=== PATIENT | male | born 1995 | race Caucasian/White ===

== ENCOUNTER 2018-08-14 12:48 | Emergency (ER) | payer MEDICAID, SELFPAY ==
[2018-08-14 12:49] VITALS: BP 148/81; PULSE 110; RESP 20; TEMP 36.6; O2SAT 85; BMI 18.6
[2018-08-14 12:58] VITALS: BP 148/81; PULSE 109; RESP 22; TEMP 36.4; O2SAT 92
[2018-08-14 13:02] VITALS: O2SAT 91
--- NOTE | 2018-08-14 13:02 | EKG12_ITS ---
Test Reason : SOB Blood Pressure : / mmHG Vent. Rate : 104 BPM Atrial Rate : 104 BPM P-R Int : 144 ms QRS Dur : 106 ms QT Int : 356 ms P-R-T Axes : 081 158 068 degrees QTc Int : 468 ms Sinus tachycardia Biatrial enlargement Right axis deviation Incomplete right bundle branch block , possible right ventricular hypertrophy Cannot rule out Anterior infarct , age undetermined Abnormal ECG Confirmed by CHON MICHEL, JHONY ([id number]), technical editor MARBELLA RAMOS ([id number] on 08/17/2018 11:55:01 AM Referred By: MIN Confirmed By:JHNOY GIVENS MD
--- NOTE | 2018-08-14 13:02 | RAD_ITS ---
STUDY: X-RAY CHEST REASON FOR EXAM: Male, 23 years old. Diaphoresis, dyspnea, history of heart murmur TECHNIQUE: AP COMPARISON: None. FINDINGS: The lungs are clear and expanded. There is no demonstrated pleural abnormality. Cardiac silhouette enlargement with prominent/rounded superior left mediastinal border. Normal mediastinum and fabián. Normal visualized pulmonary arteries. Normal visualized aortic arch and descending thoracic aorta. Normal visualized thoracic spine. Normal visualized ribs, clavicles, and shoulders. There is no demonstrated abnormality of the visualized soft tissue structures of the upper abdomen. RAD/Chest 1 View (Portable) IMPRESSION: 1. No airspace disease or pleural effusion. 2. Cardiomegaly with enlarged superior left heart border suggesting left atrial/appendage enlargement versus pulmonary artery enlargement. Findings are suggestive of congenital heart disease. Correlation with prior studies/echocardiography suggested. Electronically Signed: Sanjay Barros MD at 13:46 EDT , Service support ,
[2018-08-14] MEDS: 0.9% Normal Saline 1,000 ML 1000 ML IV (13:32)
[2018-08-14] MEDS: 0.9% Normal Saline 1,000 ML 15 ML IV (13:32)
--- NOTE | 2018-08-14 13:32 | ED.RN ---
LAB CALLED REGARDING PT BLOOD DRAW AND ELEVATED HGB. TO REDRAW CO-AG DUE TO LAB RESULTS
[2018-08-14 13:33] LABS: Absolute Lymphocyte Count 1.84 X10^3/ul (0.83-4.51); Absolute Neutrophil Count 5.3 X10^3/uL (2.0-7.7); Basophil# 0.01 X10^3/uL; Basophil% 0.1 % (0-1); Eosinophil# 0.01 X10^3/uL; Eosinophils% 0.1 % (0-5); Hematocrit 70.4 % (40-54); Lymphocyte # 1.84 X10^3/ul (4.0); Lymphocyte % 24.1 % (19-41); Mean Corp Hgb Conc 35.9 g/gl (32-36); Mean Corpuscular Hgb 32.5 pg (27.0-32.0); Mean Corpuscular Volume 90.5 fL (80-94); Monocyte# 0.46 X10^3/uL; Neutrophil # 5.32 X10^3/uL (2.7-7.7); Neutrophil % 69.6 % (47-70); Platelet Count 27 K/mm3 (150-450); RBC Distribution Width CV 14.3 % (11.6-14.6); RBC Distribution Width SD 47.2 fl (35.1-43.9); Red Blood Count 7.78 M/mm3 (4.6-6.2); White Blood Count 7.7 K/mm3 (4.4-11.0)
[2018-08-14 13:36] LABS: Differential Indicated SCAN CRITERIA MET; POSITIVE COUNT YES; POSITIVE DIFFERENTIAL NO; POSITIVE MORPHOLOGY YES
[2018-08-14 13:54] LABS: Anion Gap 9 (5-15); BUN 22 mg/dL (7-18); BUN/Creat Ratio 15.7 RATIO (10-20); Calcium,Total 9.4 mg/dL (8.5-10.1); Chloride 100 mmol/L (98-107); EST Glomerular Filtration Rate 67 mL/min (>60); Est Glom Filt Rate - Afr Amer 81 mL/min (>60); Glucose 156 mg/dL (74-106); Potassium 4.5 mmol/L (3.5-5.1); Sodium Level 136 mmol/L (136-145)
[2018-08-14 13:56] LABS: Platelet Estimate MKD DEC (ADEQ)
[2018-08-14 13:57] LABS: Hemoglobin 25.3 g/dl (13.0-16.5)
--- NOTE | 2018-08-14 14:01 | NURSING ---
CALL FROM LAB , PLATELETS 27 , HGB 25.[address] BAIRD AWARE
[2018-08-14 14:09] LABS: D-Dimer Quantitative (DVT/PE) 0.31 FEU/ug/m (0.27-0.49)
[2018-08-14 14:16] LABS: BNP,B-Type NATRIURETIC PEPTIDE 56.8 pg/mL (0-100)
--- NOTE | 2018-08-14 15:03 | ED.VISSUMM ---
- ER Visit Summary Date of Service: 08/14/18 Chief Complaint: [Shortness of breath] History of Present Illness: The patient is a 23 M [presents to the emergency room chief complaint shortness of breath for over 1 week. Patient is actually been doing short of breath with activity and exertion for months. Patient states that he saw a flight control tower operator after his primary care physician told him he had a heart murmur recently and had an echocardiogram he thought it was in April. Patient denies any chest pain. He denies any fever. Patient does have a history of asthma. Patient denies recent travel or surgery. Patient is not sure what the ultrasound of his heart showed.] Physical Examination: [HEENT-PERRLA, EOMI. Cranial nerves II through XII grossly intact. TMs clear. Mucous membranes moist. No adenopathy. Cardiovascular-regular and tachycardic with a 4 out of 6 harsh systolic ejection murmur. Lungs-clear to auscultation, chest wall stable without crepitus or subcu emphysema Abdomen-normoactive bowel sounds, soft, nontender, no rebound or rigidity, no peritoneal signs. Extremities-intact ?4, normal range of motion, normal pulses, atraumatic] Test Results: [Patient was hypoxic on arrival with a pulse ox of 87% on room air therefore he was placed on 2 L nasal cannula O2. His EKG showed a sinus tachycardia with a ventricular rate of 104 bpm with biatrial enlargement. CBC with differential 7.7, hemoglobin 20.5, hematocrit 70, platelets 27. Chemistries showed a BUN of 22 and creatinine 1.4. Troponin is less than 0.15. BNP was 57. D-dimer was 0.31. Chest x-ray showed left atrial enlargement versus pulmonary artery enlargement.] Emergency Department Course and Treatment: [Patient was placed on 2 L nasal cannula O2. Case was discussed with [facility] and will have patient transferred to their facility for concern of heart failure and pulmonary hypertension for evaluation of heart and lung transplant per flight control tower operator. 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 It may contain incorrect words, spelling, and punctuation that were not noted in review of the chart prior to signing ED Disposition - Plan for ED Patient: Referrals: Brown Murillo DO [Primary Care Provider] -
[2018-08-14 15:13] VITALS: BP 135/80; PULSE 105; PULSE 108; RESP 18; TEMP 36.6; O2SAT 95
[2018-08-14 16:34] VITALS: BP 128/80; PULSE 102; RESP 16; TEMP 36.6; O2SAT 95
[2018-08-14 16:54] VITALS: BP 135/70; PULSE 105; RESP 18; O2SAT 95
[2018-08-16 12:47] LABS: Pathologist Review Reviewed
== END 2018-08-14 17:45 | disposition short-term general hospital (02) ==
PROVIDERS: Emergency Provider Emergency Medicine; Family Provider Family Medicine; PCP Family Medicine
DX: I27.20 Pulmonary hypertension, unspecified (principal); R09.02 Hypoxemia; D69.6 Thrombocytopenia, unspecified; J45.909 Unspecified asthma, uncomplicated; R01.1 Cardiac murmur, unspecified
CPT/HCPCS: 36415; 71045; 80048; 83880; 84484; 85025; 85379; 93005; 96360; 96361; 99285; A4216

== ENCOUNTER → 2018-10-02 | Outpatient (CLI) | payer MEDICAID, SELFPAY ==
[2018-10-02 10:22] LABS: Absolute Lymphocyte Count 2.21 X10^3/uL (0.83-4.51); Absolute Neutrophil Count 3.5 X10^3/uL (2.0-7.7); Basophil# 0.04 X10^3/uL; Basophil% 0.6 % (0-1); Eosinophil# 0.07 X10^3/uL; Eosinophils% 1.1 % (0-5); Lymphocyte # 2.21 X10^3/ul (4.0); Lymphocyte % 34.6 % (19-41); Mean Corp Hgb Conc 34.8 g/dL (32-36); Mean Corpuscular Hgb 31.1 pg (27.0-32.0); Mean Corpuscular Volume 89.3 fL (80-94); Mean Platelet Vol. 11.4 fl (6.2-12.0); Monocyte# 0.54 X10^3/uL; Monocyte% 8.5 % (0-10); NRBC Flagged by Analyzer 0 % (0-5); Neutrophil # 3.52 X10^3/uL (2.7-7.7); Platelet Count 128 K/mm3 (150-450); RBC Distribution Width CV 13.5 % (11.6-14.6); RBC Distribution Width SD 41.9 fl (35.1-43.9); Red Blood Count 6.76 M/mm3 (4.6-6.2); White Blood Count 6.4 K/mm3 (4.4-11.0)
[2018-10-02 10:23] LABS: Hematocrit 60.4 % (40-54)
[2018-10-02 10:45] LABS: BNP,B-Type NATRIURETIC PEPTIDE 33.2 pg/mL (0-100)
[2018-10-02 10:48] LABS: AST(SGOT) 26 U/L (15-37); Alanine Aminotransfer ALT/SGPT 35 U/L (16-61); Albumin, Serum 3.8 g/dL (3.2-5.0); Alkaline Phosphatase 78 U/L (45-117); Bilirubin, Direct 0.19 mg/dL (0.00-0.30); Globulin 3.2 g/dL (2.2-4.2); Uric Acid 7.3 mg/dL (3.5-7.2)
[2018-10-04 12:25] LABS: Pathologist Review Reviewed
== END | disposition home or self-care (01) ==
PROVIDERS: Family Provider Family Medicine; PCP Family Medicine
DX: Q25.0 Patent ductus arteriosus (principal); I27.83 Eisenmenger's syndrome
CPT/HCPCS: 36415; 80076; 83880; 84550; 85025

== ENCOUNTER → 2019-02-05 09:24 | Outpatient (CLI) | payer MEDICAID, SELFPAY ==
[2019-02-05 09:50] LABS: Absolute Lymphocyte Count 2.54 X10^3/uL (0.83-4.51); Absolute Neutrophil Count 4.1 X10^3/uL (2.0-7.7); Basophil# 0.07 X10^3/uL; Basophil% 0.9 % (0-1); Eosinophil# 0.08 X10^3/uL; Eosinophils% 1.1 % (0-5); Lymphocyte # 2.54 X10^3/ul (4.0); Lymphocyte % 33.9 % (19-41); Mean Corp Hgb Conc 34.5 g/dL (32-36); Mean Corpuscular Hgb 31.4 pg (27.0-32.0); Mean Corpuscular Volume 90.8 fL (80-94); Mean Platelet Vol. 11.6 fl (6.2-12.0); Monocyte# 0.72 X10^3/uL; Monocyte% 9.6 % (0-10); NRBC Flagged by Analyzer 0 % (0-5); Neutrophil # 4.06 X10^3/uL (2.7-7.7); Neutrophil % 54.2 % (47-70); POSITIVE COUNT YES; Platelet Count 75 K/mm3 (150-450); RBC Distribution Width CV 14.7 % (11.6-14.6); RBC Distribution Width SD 42.5 fl (35.1-43.9); Red Blood Count 7.65 M/mm3 (4.6-6.2); White Blood Count 7.5 K/mm3 (4.4-11.0)
[2019-02-05 09:51] LABS: Hematocrit 69.5 % (40-54)
[2019-02-05 10:08] LABS: ALB/GLOB Ratio 1.1 RATIO (0.9-2.4); AST(SGOT) 29 U/L (15-37); Alanine Aminotransfer ALT/SGPT 44 U/L (16-61); Albumin, Serum 3.8 g/dL (3.2-5.0); Alkaline Phosphatase 74 U/L (45-117); Anion Gap 6 (5-15); BUN 19 mg/dL (7-18); BUN/Creat Ratio 19.2 RATIO (10-20); Calcium,Total 8.8 mg/dL (8.5-10.1); Chloride 109 mmol/L (98-107); Creatinine, Serum 0.99 mg/dL (0.70-1.30); EST Glomerular Filtration Rate 100 mL/min (>60); Est Glom Filt Rate - Afr Amer 121 mL/min (>60); Globulin 3.4 g/dL (2.2-4.2); Glucose 73 mg/dL (74-106); Potassium 4.4 mmol/L (3.5-5.1); Protein, Total 7.2 g/dL (6.4-8.2); Sodium Level 140 mmol/L (136-145)
[2019-02-05 10:31] LABS: BNP,B-Type NATRIURETIC PEPTIDE 64.8 pg/mL (0-100)
[2019-02-07 12:05] LABS: Pathologist Review Reviewed
== END ==
PROVIDERS: Family Provider Family Medicine; PCP Family Medicine
DX: I27.83 Eisenmenger's syndrome (principal)
CPT/HCPCS: 36415; 80053; 83880; 85025

== ENCOUNTER → 2019-11-12 08:31 | Outpatient (CLI) | payer MEDICAID, SELFPAY ==
[2019-11-12 10:00] LABS: Absolute Lymphocyte Count 2.18 X10^3/uL (0.83-4.51); Absolute Neutrophil Count 3.6 X10^3/uL (2.0-7.7); Basophil# 0.05 X10^3/uL; Basophil% 0.8 % (0-1); Eosinophil# 0.05 X10^3/uL; Eosinophils% 0.8 % (0-5); Hemoglobin 24.5 g/dL (13.0-16.5); Lymphocyte # 2.18 X10^3/ul (4.0); Lymphocyte % 34.2 % (19-41); Mean Corp Hgb Conc 33.7 g/dL (32-36); Mean Corpuscular Hgb 30.5 pg (27.0-32.0); Mean Corpuscular Volume 90.5 fL (80-94); Mean Platelet Vol. 13.1 fl (6.2-12.0); Monocyte# 0.46 X10^3/uL; Monocyte% 7.2 % (0-10); NRBC Flagged by Analyzer 0 % (0-5); Neutrophil # 3.61 X10^3/uL (2.7-7.7); Neutrophil % 56.7 % (47-70); POSITIVE COUNT YES; Platelet Count 74 K/mm3 (150-450); RBC Distribution Width SD 54.1 fl (35.1-43.9); White Blood Count 6.4 K/mm3 (4.4-11.0)
[2019-11-12 10:13] LABS: Differential Indicated SCAN CRITERIA MET; Hematocrit 72.7 % (40-54); Red Blood Count 7.98 M/mm3 (4.6-6.2)
[2019-11-12 10:31] LABS: Differential Comment SCANNED; Platelet Estimate MKD DEC (ADEQ)
[2019-11-14 14:13] LABS: Pathologist Review Reviewed
== END ==
PROVIDERS: PCP Family Medicine
DX: I27.83 Eisenmenger's syndrome (principal)
CPT/HCPCS: 36415; 85025

== ENCOUNTER 2020-06-19 09:55 | Outpatient (RCR) | payer MEDICAID, SELFPAY ==
[2020-06-19 10:59] LABS: Absolute Lymphocyte Count 2.83 X10^3/uL (0.83-4.51); Absolute Neutrophil Count 4.2 X10^3/uL (2.0-7.7); Basophil# 0.07 X10^3/uL; Basophil% 0.9 % (0-1); Eosinophil# 0.07 X10^3/uL; Eosinophils% 0.9 % (0-5); Hemoglobin 24.8 g/dL (13.0-16.5); Lymphocyte # 2.83 X10^3/ul (0.83-4.51); Lymphocyte % 36.6 % (19-41); Mean Corp Hgb Conc 33.2 g/dL (32-36); Mean Corpuscular Hgb 30.1 pg (27.0-32.0); Mean Corpuscular Volume 90.7 fL (80-94); Mean Platelet Vol. 12.7 fl (6.2-12.0); Monocyte# 0.58 X10^3/uL; Monocyte% 7.5 % (0-10); NRBC Flagged by Analyzer 0 % (0-5); Neutrophil # 4.18 X10^3/uL (2.7-7.7); POSITIVE COUNT YES; Platelet Count 82 K/mm3 (150-450); RBC Distribution Width CV 16.6 % (11.6-14.6); RBC Distribution Width SD 45.4 fl (35.1-43.9); White Blood Count 7.7 K/mm3 (4.4-11.0)
[2020-06-19 11:16] LABS: Hematocrit 74.7 % (40-54); Red Blood Count 7.78 M/mm3 (4.6-6.2)
[2020-06-19 11:17] LABS: Differential Indicated SCAN CRITERIA MET
[2020-06-19 11:29] LABS: Platelet Estimate MOD DEC (ADEQ)
[2020-06-19 11:47] LABS: ALB/GLOB Ratio 0.8 RATIO (0.9-2.4); AST(SGOT) 30 U/L (15-37); Alanine Aminotransfer ALT/SGPT 42 U/L (16-61); Albumin, Serum 3.3 g/dL (3.2-5.0); Alkaline Phosphatase 78 U/L (45-117); Anion Gap 5 (5-15); BUN 17 mg/dL (7-18); BUN/Creat Ratio 16.3 RATIO (10-20); Calcium,Total 9.4 mg/dL (8.5-10.1); Chloride 106 mmol/L (98-107); Creatinine, Serum 1.04 mg/dL (0.70-1.30); EST Glomerular Filtration Rate 93 mL/min (>60); Est Glom Filt Rate - Afr Amer 113 mL/min (>60); Globulin 3.9 g/dL (2.2-4.2); Glucose 54 mg/dL (74-106); Potassium 4.2 mmol/L (3.5-5.1); Protein, Total 7.2 g/dL (6.4-8.2); Sodium Level 136 mmol/L (136-145)
[2020-06-19 11:57] LABS: BNP,B-Type NATRIURETIC PEPTIDE 59.4 pg/mL (0-100)
[2020-06-20 12:23] LABS: Pathologist Review Reviewed
== END 2020-06-19 18:00 | disposition home or self-care (01) ==
LOC: LAB 09:55
PROVIDERS: PCP Family Medicine
DX: I27.83 Eisenmenger's syndrome (principal)
CPT/HCPCS: 36415; 80053; 83880; 85025

== ENCOUNTER 2020-08-16 14:06 | Outpatient (RCR) | payer MEDICAID, SELFPAY ==
[2020-08-16 15:16] LABS: Absolute Lymphocyte Count 2.34 X10^3/uL (0.83-4.51); Absolute Neutrophil Count 4.8 X10^3/uL (2.0-7.7); Basophil% 1.3 % (0-1); Eosinophil# 0.05 X10^3/uL; Eosinophils% 0.6 % (0-5); Lymphocyte # 2.34 X10^3/ul (0.83-4.51); Lymphocyte % 29.8 % (19-41); Mean Corpuscular Hgb 29.9 pg (27.0-32.0); Mean Platelet Vol. 13.3 fl (6.2-12.0); Monocyte# 0.52 X10^3/uL; Monocyte% 6.6 % (0-10); NRBC Flagged by Analyzer 0 % (0-5); Neutrophil # 4.82 X10^3/uL (2.7-7.7); Neutrophil % 61.4 % (47-70); POSITIVE COUNT YES; Platelet Count 60 K/mm3 (150-450); RBC Distribution Width CV 16.8 % (11.6-14.6); RBC Distribution Width SD 43.8 fl (35.1-43.9); White Blood Count 7.9 K/mm3 (4.4-11.0)
[2020-08-16 15:47] LABS: Hematocrit 73.8 % (40-54); Mean Corp Hgb Conc 34.4 g/dL (32-36); Mean Corpuscular Volume 86.9 fL (80-94); Red Blood Count 8.49 M/mm3 (4.6-6.2)
[2020-08-16 15:48] LABS: Differential Indicated SCAN CRITERIA MET
[2020-08-16 15:55] LABS: Hemoglobin 25.4 g/dL (13.0-16.5)
[2020-08-16 16:53] LABS: Differential Comment SCANNED; Platelet Estimate MOD DEC (ADEQ); Platelet Morphology LARGE
[2020-08-17 12:40] LABS: Pathologist Review Reviewed
== END 2020-08-16 18:00 | disposition home or self-care (01) ==
LOC: LAB 14:06
PROVIDERS: PCP Family Medicine
DX: I27.83 Eisenmenger's syndrome (principal)
CPT/HCPCS: 36415; 85025